=== PATIENT | female | born 1995 | race Caucasian/White ===

== ENCOUNTER → 2022-01-12 13:49 | Outpatient (CLI) | payer OTHER, SELFPAY ==
--- NOTE | ~2022-01-12 | US_ITS ---
EXAMINATION: US OB follow up EXAM DATE: 01/12/2022 14:17 INDICATION: Z34.90 - Encounter for supervision of normal . 3rd trimester. TECHNIQUE: Pelvic obstetrical transabdominal sonogram was performed by a technologist. There are mu ltiple grayscale and Doppler images available for interpretation. There are no earlier studies of is gestation for comparison. FINDINGS: There is a single fetus identified in vertex presentation with a heart rate of 144 beats pe r minute. The placenta is located in the posterior fundal position. There is no sonographic evidence of retroplacental hemorrhage identified. The amniotic fluid index is 11.5 centimeters, which is norm al. BIOMETRIC DATA: Biparietal diameter (BPD): 9.1 cm ----------------> 37 weeks 0 days. Head circumference (HC): 33.0 cm ----------------> 37 weeks 3 days. Abdominal circumference (AC): 35.3 cm ----------> 39 weeks 1 day. Femur length (FL): 7.2 cm --------------------------> 36 weeks 6 days. These measurements are concordant. HC/AC ratio is 0.93 (The 5th -- 95th percentile range is 0.91-1.05. Estimated weight is 3429 g +/- 514 g. This is the 45th percentile when the currently reported clinical gestation age 39 weeks 2 days, clinical estimated date of delivery (BEN-OPE) 01/17 is used. Fe gretchen estimated gestational age based on measurements from this exam is 37 weeks 4 days, with an estima jose date of delivery (BEN-AUA) 01/29. IMPRESSION: 1. Single fetus in vertex presentation with heart rate 144 beats per minute. 2. Estimated weight of 3429 grams, 45th percentile using the currently reported clinical gesta tion age of 39 weeks 2 days, BEN(OPE) 01/17/2022. Reviewed, dictated and finalized at location B. RACY TUTOR IMPRESSION: 1. Single fetus in vertex presentation with heart rate 144 beats per minute. 2. Estimated weight of 3429 grams, 45th percentile using the currently r eported clinical gestation age of 39 weeks 2 days, BEN(OPE) 01/17/2022.
== END ==
PROVIDERS: Visit Provider Obstetrics & Gynecology
DX: Z34.93 Encounter for supervision of normal pregnancy, unspecified, third trimester (principal); Z3A.39 39 weeks gestation of pregnancy
CPT/HCPCS: 76816

== ENCOUNTER 2022-01-25 06:18 | Outpatient (RCR) | payer OTHER, SELFPAY ==
--- NOTE | ~2022-01-25 | US_ITS ---
US OB BPP wo non-stress DATE: 01/25/2022 15:59 INDICATION: Post dates TECHNIQUE: Real-time imaging and Doppler analysis COMPARISON: 01/12/2022 obstetrical ultrasound follow-up examination FINDINGS: Live philip intrauterine gestation, fetus in vertex presentation. heart rate of 13 9 bpm. The placenta is fundal. Amniotic fluid index measures 5.7 cm, which is below the 5th percentile is 7.0 cm. 95th percentile AF I is 19.4 cm. BIOPHYSICAL PROFILE reported by surface lay out technician: breathin out of 2 movement: 2 out of 2 tone: 2 out of 2 Amniotic fluid pocket: 2 out of 2 Total score: 8 out of 8 IMPRESSION: Normal biophysical profile score of 8 out of 8 Low KELL of 5.7 cm Reviewed, dictated and finalized at Location A. Reviewed, dictated and finalized at location A.
[2022-01-25 15:42] VITALS: BP 118/59; PULSE 72
--- NOTE | 2022-01-25 16:08 | PC.NURSE ---
1536- Spoke with Dr. Martines, tadeo reviewed. Patient had 3 lates at beginning of strip. Will send patient to [facility], if 06/21 patient may be discharged to home.
== END 2022-01-25 16:08 | disposition home or self-care (01) ==
LOC: ANHOBOP 06:18
PROVIDERS: Visit Provider Obstetrics & Gynecology
DX: O48.0 Post-term pregnancy (principal); Z3A.41 41 weeks gestation of pregnancy
CPT/HCPCS: 59025; 76819

== ENCOUNTER 2022-01-27 09:00 | Observation (INO) | payer OTHER, SELFPAY ==
--- NOTE | ~2022-01-27 | US_ITS ---
EXAMINATION: US OB limited w BPP DATE: 01/27/2022 10:53 CDT INDICATION: Check amniotic fluid index TECHNIQUE: Real-time transabdominal obstetric ultrasound. FINDINGS: Comparison to 01/25/2022 There is a single living fetus in vertex presentation. The placenta is fundal without placenta previ a. KELL is low measuring 6.3 cm (normal range 7.0-19.4) cardiac activity and movement is noted with a heart rate of 157 beats per minute. Biophysical profile: breathin of 2 movement: 2 of 2 tone: 2 of 2 Amniotic flud pocket: 2 of 2 Total score: 8 of 8 IMPRESSION: 1. Single living intrauterine in vertex presentation. 2: Total biophysical profile score of 8/8. 3: Oligohydramnios Reviewed, dictated and finalized at location B.
[2022-01-27 09:51] VITALS: BP 128/78; PULSE 83
[2022-01-27 10:46] VITALS: BP 125/84; PULSE 86
--- NOTE | 2022-01-27 12:33 | PM.OBTRLD ---
OB - Triage/Final Diagnosis Visit Information Comments/Additional reasons for admission: I have assessed the risk for this patient, Juliet Sauer, and determined that she would benefit from observation care. Evaluation Vital signs: Vital Signs - 24 hr 01/27/22 09:51 01/27/22 10:46 Pulse Rate 83 86 Blood Pressure 128/78 125/84 Final Diagnosis (1) Oligohydramnios: Qualifiers: Fetus number: single or unspecified fetus Trimester: third trimester Qualified Code(s): O41.03X0 - Oligohydramnios, third trimester, not applicable or unspecified Code(s): O41.00X0 - Oligohydramnios, unspecified trimester, not applicable or unspecified Status: Acute (2) : Qualifiers: Weeks of gestation: 41 weeks Qualified Code(s): Z3A.41 - 41 weeks gestation of Code(s): Z34.90 - Encounter for supervision of normal , unspecified, unspecified trimester Status: Acute Plan: Images reviewed; KELL actually 3.3cm as you cannot include fluid with cord in it. BPP + NST otherwise 08/23. Patient continues to refuse medical induction of labor (not elective as she is oligohydramnios at late term). Patient once again informed of the risks of going home, IUFD being our biggest concern. ROM+ was negative. She was re-examined and cervix is 4/80/-2; FHT's: 130's/mod kurt/ + accels/ no decels, shefali q3min. No bleeding or leakage of fluid. Baby is moving great. She has agreed to move induction to 01/29/22 AM; plan for membrane sweep + ROM in the morning; pitocin to be started after 6 hours if no cervical change and to start at 1mU and increase slowly. Strict L&D precautions. Pt signed AMA form.
[2022-01-27 12:52] VITALS: BP 116/82; PULSE 88
--- NOTE | 2022-01-27 13:02 | PC.NURSE ---
1220--Dr. Do reviewed US at bedside with patient and FOB. Fluid levels reviewed. Risks and benefits of IOL discussed with pt and FOB. Discussed risks and benefits of pt signing out AMA with fluid levels as reported.
--- NOTE | 2022-01-27 13:10 | PC.NURSE ---
1225--Pt and FOB decided to sigh AMA paper. Risks again discussed with verbal understanding per pt and FOB.
--- NOTE | 2022-01-27 13:13 | PC.NURSE ---
1310--All charting under Ariane Ruff RN is actually per Esequiel Boles RN
== END 2022-01-27 12:45 | disposition home or self-care (01) ==
PROVIDERS: Admitting Provider Obstetrics & Gynecology; Visit Provider Obstetrics & Gynecology
DX: O41.03X0 Oligohydramnios, third trimester, not applicable or unspecified (principal); Z3A.41 41 weeks gestation of pregnancy
CPT/HCPCS: 59025; 76815; 76819; G0378; G0379

== ENCOUNTER 2022-01-28 01:41 | Inpatient (IN) | payer OTHER, SELFPAY ==
[2022-01-28] VITALS (9 sets, daily range): BP systolic 121–163; BP diastolic 74–85; PULSE 55–105; RESP 16–18; TEMP 36.6–36.7; O2SAT 100; BMI 25.7
[2022-01-28 04:50] LABS: Basophils Percent Auto 0.1 % (0.2-1.2); Hematocrit 41.3 % (37.0-47.0); Hemoglobin 14.4 g/dL (12.0-15.0); Immature Granulocyte Absolute 0.12 K/mm3 (0.00-0.031); Immature Granulocyte Percent A 0.8 % (0-0.5); Immature Platelet Fraction Pct 21.5 % (0.9-11.2); Lymphocytes Absolute Auto 1.09 K/mm3 (0.9-3.2); Lymphocytes Percent Auto 7.7 % (18.3-44.2); Mean Corpuscular HGB Conc 34.9 g/dl (32-36); Mean Corpuscular Hemoglobin 32.9 pg (26-34); Mean Corpuscular Volume 94.3 fl (80-100); Mean Platelet Volume 13.9 fl (7.4-10.4); Monocytes Absolute Auto 0.3 K/mm3 (0.1-0.6); Monocytes Percent Auto 2.4 % (2.6-8.5); Neutrophils Absolute Auto 12.7 K/mm3 (1.3-6.7); Platelet Count Result 115 k/mm3 (150-375); Red Blood Count 4.38 M/mm3 (4.2-5.4); Red Cell Distribution Width 12.4 % (11.5-14.5); White Blood Count 14.2 K/mm3 (4.5-10.0)
--- NOTE | 2022-01-28 04:56 | LDADM ---
This patient, Juliet Sauer, was admitted to Labor/Delivery/Recovery 104 on 01/28/22 at 01:41. Plans for labor, pain management and were discussed with patient. Patient/family oriented to hospital policies and general routines including ID bracelet, bed and alarms, visiting hours, pain management, procedures, bathroom and other care routines, personal items, smoking policy, room service/diet and guest tray routines, security routines, and visiting hours. Patient/Family are encouraged to report perceived risks to care and to ask questions if they do not understand what they are told or what they should do. See OBIX for further documentation.
--- NOTE | 2022-01-28 05:10 | WPDANESEPP ---
Anes - Eval Pre Procedure Procedure: labor epidural Date/Time: 01/28/22 05:10 Surgeon: gal Preop Diagnosis: pain during labor Pre Op Diagnosis: Contractions Patient Data Age: 26 Gender: F Height: 1.65 m Weight: 70 kg Last Vital Signs Pulse 84 01/28/22 02:00 BP 134/80 01/28/22 02:00 Allergies Allergy/AdvReac Type Severity Reaction Status Date / Time No Known Allergies Allergy Verified 01/13/22 16:14 Home Medications Medication Instructions Recorded Confirmed Type ferrous sulfate 325 mg (65 mg 325 mg PO DAILY 11/30/21 01/28/22 History iron) tablet prenat.vits,hollie,xbp-pnto-uyvdw 1 tablet PO DAILY 11/30/21 01/28/22 History Laboratory Tests 01/28/22 01/28/22 04:13 04:13 WBC 14.2 K/mm3 H K/mm3 (4.5-10.0) RBC 4.38 M/mm3 M/mm3 (4.2-5.4) Hgb 14.4 g/dL g/dL (12.0-15.0) Hct 41.3 % % (37.0-47.0) MCV 94.3 fl fl (80-100) MCH 32.9 pg pg (26-34) MCHC 34.9 g/dl g/dl (32-36) RDW 12.4 % % (11.5-14.5) Plt Count 115 k/mm3 L k/mm3 (150-375) MPV 13.9 fl H fl (7.4-10.4) Immature Gran % (Auto) 0.8 % H % (0-0.5) Neut % (Auto) 89.0 % H % (45.5-73.1) Lymph % (Auto) 7.7 % L % (18.3-44.2) [place] % (Auto) 2.4 % L % (2.6-8.5) Eos % (Auto) 0.0 % % (0-4.4) Baso % (Auto) 0.1 % L % (0.2-1.2) Lymph # (Auto) 1.09 K/mm3 K/mm3 (0.9-3.2) [place] # (Auto) 0.3 K/mm3 K/mm3 (0.1-0.6) Eos # (Auto) 0.0 K/mm3 K/mm3 (0-0.3) Baso # (Auto) 0.0 K/mm3 K/mm3 (0.0-0.1) Abs Immat Gran (auto) 0.12 K/mm3 H K/mm3 (0.00-0.031) Absolute Neuts (auto) 12.7 K/mm3 H K/mm3 (1.3-6.7) Absolute Nucleated RBC 0.0 K/mm3 K/mm3 (0.0-0.012) Nucleated RBC % 0.0 % % (0.0-0.2) % Immature Plt Fraction 21.5 % H % (0.9-11.2) RPR Pending Patient hx anesthesia problems: none Family hx anesthesia problems: none Results Review: All pre-operative results and documents have been reviewed as part of the pre-operative evaluation. [facility] Past Medical History Medical History (Updated 01/28/22 @ 05:10 by Kadi Santos CRNA) IUP (intrauterine ), incidental Surgical History Surgical History History of lumpectomy (~2011) left breast Family History Family History Father Cerebrovascular accident Hypertension Grandparent Heart disease Social History Social History Smoking status: Never smoker Second hand tobacco smoke exposure: No Alcohol intake: never Substance use: never Gender identity (if verbalized by the patient): Female Sexual Orientation (if Verbalized by the Patient): Straight or Heterosexual Spiritual care concerns: No Exam Day of Procedure 01/28/22 05:10
[2022-01-28 06:08] LABS: Rapid Plasma Reagin Non-Reactive (NonReactive)
--- NOTE | 2022-01-28 06:50 | PM.IMHP ---
H&P: HPI History of Present Illness Date/Time: 01/28/22 06:30 Juliet is a 26yo @ 41.4wks (BEN 01/17/22) who presented to L&D with concerns for ROM but was found to be shefali and made change to 6cm. She denies any VB. She feels good movement. She desires as natural of a labor as possible. Her is complicated by: - Late term - Oligohydramnios (has been refusing induction since 01/25/22) - H/o complex migraines - Gestational thrombocytopenia; stable at 115k Chief Complaint: leakage of fluid/contractions Review of Systems Review of Systems: All systems reviewed & are unremarkable except as noted in HPI and below (HPI) PMFSH Past Medical History Medical History IUP (intrauterine ), incidental Surgical History Surgical History History of lumpectomy (~2011) left breast Family History Family History Father Cerebrovascular accident Hypertension Grandparent Heart disease Social History Social History Smoking status: Never smoker Second hand tobacco smoke exposure: No Alcohol intake: never Substance use: never Gender identity (if verbalized by the patient): Female Sexual Orientation (if Verbalized by the Patient): Straight or Heterosexual Spiritual care concerns: No Meds Home Medications and Allergies Home Medications Medication Instructions Recorded Confirmed Type ferrous sulfate 325 mg (65 mg 325 mg PO DAILY 11/30/21 01/28/22 History iron) tablet prenat.vits,hollie,iiz-rxic-emaou 1 tablet PO DAILY 11/30/21 01/28/22 History Allergies Allergy/AdvReac Type Severity Reaction Status Date / Time No Known Allergies Allergy Verified 01/13/22 16:14 Vital Signs Vital Signs - 24 hr 01/28/22 02:00 01/28/22 05:53 Pulse Rate 84 99 Blood Pressure 134/80 163/82 H Exam Const: General: cooperative, healthy appearing, no acute distress and in distress (with contractions) Resp: Effort & Inspection: normal respiratory effort Cardio: Rate: regular rate GI: Inspection: normal to inspection GI Palp: No abdominal tenderness : Other: FHT's: 130's/ mod kurt/ + accels/ occasional mild variables - cat 2, reassuring TOCO: ctx's q3-5min Cervix: 6/100/0 Membranes: SROM, clear 0640 Presentation: cephalic Skin: General skin exam: normal color Neuro: General: patient oriented x3 Extrem: General: normal to inspection Psych: Appearance: grossly normal Affect: normal affect Attitude: cooperative H&P: Results Labs Labs: Short CBC 01/28/22 Range/Units 04:13 WBC 14.2 H (4.5-10.0) K/mm3 Hgb 14.4 (12.0-15.0) g/dL Hct 41.3 (37.0-47.0) % Plt Count 115 L (150-375) k/mm3 Assessment and Plan Assessment and plan (1) : Qualifiers: Weeks of gestation: 41 weeks Qualified Code(s): Z3A.41 - 41 weeks gestation of Code(s): Z34.90 - Encounter for supervision of normal , unspecified, unspecified trimester Status: Acute (2) Oligohydramnios: Qualifiers: Fetus number: single or unspecified fetus Trimester: third trimester Qualified Code(s): O41.03X0 - Oligohydramnios, third trimester, not applicable or unspecified Code(s): O41.00X0 - Oligohydramnios, unspecified trimester, not applicable or unspecified Status: Acute (3) Gestational thrombocytopenia: Qualifiers: Trimester: third trimester Qualified Code(s): O99.113 - Other diseases of the blood and blood-forming organs and certain disorders involving the immune mechanism complicating , third trimester; D69.6 - Thrombocytopenia, unspecified Code(s): O99.119 - Other diseases of the blood and blood-forming organs and certain disorders involving the immune mechanism
--- NOTE | 2022-01-28 06:50 | WPDHPUPDATE1 ---
History and Physical Update Update Date/Time: 01/28/22 06:50 History and Physical has been reviewed, including an updated exam of the patient. There are NO changes in the patient's condition. Risks, benefits, and alternatives have been discussed and questions answered. Patient agrees to proceed with procedure.
[2022-01-28] MEDS: OXYTOCIN 30 UNITS/NS 500 ML 30 UNITS/500 ML BAG 999 UNITS IV CONT ×2 (08:55→09:26)
[2022-01-28] MEDS: LACTATED RINGERS 1,000 ML 125 ML IV CONT (08:55)
[2022-01-28] MEDS: miSOPROStol 200 MCG TABLET ×2 (08:57)
[2022-01-28] MEDS: miSOPROStol 200 MCG TABLET 400 MCG (08:57)
[2022-01-28] MEDS: LIDOCAINE HCL 1% LOCAL INJ 10 ML VIAL (09:05)
[2022-01-28] MEDS: METHYLERGONOVINE MALEATE 0.2 MG/ML VIAL IM (09:07)
[2022-01-28 11:22] LABS: Hematocrit 38.6 % (37.0-47.0); Hemoglobin 13.3 g/dL (12.0-15.0); Mean Corpuscular HGB Conc 34.5 g/dl (32-36); Mean Corpuscular Hemoglobin 33.6 pg (26-34); Mean Corpuscular Volume 97.5 fl (80-100); Platelet Count Result 99 k/mm3 (150-375); Red Blood Count 3.96 M/mm3 (4.2-5.4); Red Cell Distribution Width 12.4 % (11.5-14.5); White Blood Count 21.5 K/mm3 (4.5-10.0)
--- NOTE | 2022-01-28 11:58 | PM.OBPRVD ---
OB - Delivery Note Procedure Delivery date: 01/28/22 Events: Oligohydramnios and Other (late term) Delivery monitor: External FHT and External Uterine Route of delivery: Laceration Description: Perineal - 2nd Degree Delivery repair: vicryl Specimen: Yes (placenta) Quantitative Blood Loss (ml): 1,400 Anesthesia type: None Disposition: Floor Complications: hemorrhage Baby Date of : 01/28/22 Time of : 08:46 Weeks of gestation at delivery: 41 (.4) Infant gender: Female Weight (pounds): 7 Weight (ounces): 13 presentation: vertex position: Right Occiput Anterior Placenta delivery description: Expressed Cord Vessel Description: 3 Vessels, Nuchal Cord, Loose and Delayed Cord Clamping score one minute: 9 score five minutes: 9 Narrative: Juliet progressed to complete dilation without any interventions or pain medications. She pushed for approximately 45 minutes. She delivered the head over intact perineum. The 's shoulders and body were easily delivered without complication. Nuchal cord was noted but delivered through. The was immediately placed skin to skin and has spontaneous cry. Meconium was noted. Delayed cord clamping was performed. The umbilical cord was then clamped and cut. A segment of the cord was collected for cord gases. The remaining cord blood was collected for typing. With Pitocin running, and gentle downward traction on the cord, the placenta delivered without complications. Brisk bleeding was then noted and bimanual massage revealed atony. Misoprostol 800 mcg was placed rectally and good tone was noted. She was then examined and a second-degree perineal laceration was noted. She was anesthetized using lidocaine. Brisk bleeding was once again noted and bimanual massage revealed at knee again. Uterine sweep was performed multiple times and no membranes or placental fragments were palpated. She was then given Methergine IM and good tone was noted. The second-degree perineal laceration was repaired in the normal fashion using 2-0 Vicryl. Good hemostasis was noted. Fundal massage revealed a firm uterus with no bleeding. All laps, sponges, and OR towels were weighed and revealed an estimated blood loss of 1400 cc. She denied any symptoms of anemia, vitals were stable, and CBC was sent approximately 2 hours after delivery. Sponge, lap, instrument, and needle counts were correct at the end the procedure. Mom and baby left bonding in the birthing suite in stable condition. [facility] Delivery Billing Delivery Delivery: Delivery Charge
--- NOTE | 2022-01-28 12:40 | PC.NURSE ---
Patient transferred to post room #283 ambulatory from labor and delivery. Support person present. Oriented to unit, room, information board, rooming in, admission packet and security measures. Patient verbalizes understanding.
--- NOTE | 2022-01-28 15:50 | PC.NURSE ---
Educated regarding positioning in football and cross cradle. showing no feeding cues at this time however practiced with holds. Mother shown hand expression and states she has a hakka and electric pump for home use. Educated regarding risks of lower milk supply with early introduction of artificial nipple; Recommendation 3-4 weeks. Discussed feeding cues and feeding on demand; 8-12 times per day. Parents verbalized understanding and no questions at this time.
[2022-01-28] MEDS: IBUPROFEN 600 MG TABLET PO (17:42)
[2022-01-29 04:20] VITALS: BP 119/75; PULSE 87; RESP 16; TEMP 36.6
[2022-01-29] MEDS: IBUPROFEN 600 MG TABLET PO ×2 (04:40→12:31)
[2022-01-29 05:54] LABS: Hematocrit 34.9 % (37.0-47.0); Hemoglobin 11.5 g/dL (12.0-15.0)
[2022-01-29 07:50] VITALS: BP 119/73; PULSE 54; RESP 16; TEMP 36.4; O2SAT 98
--- NOTE | 2022-01-29 11:09 | PC.NURSE ---
Introductions were made and mother led the conversation with regards to her experience feeding her baby. Reminded parents to use good handwashing to prevent infection. has had 10 feedings in the past 24 hours and meets the outcomes for weight, output and jaundice. Mother states she feels confident to continue effectively her infant at home. Reviewed production of human milk, transition of milk, signs of adequate intake and engorgement prevention/relief and when to call the infant care provider using the elimination sheet & mom and baby guide. Reviewed community resources and outpatient services as listed in the mom and baby guide/[facility] website. Reinforced watching for feeding cues with responsive feeding and how to stimulate to initiate feeding three hours from the start of the last feeding. Mother voiced understanding of information shared. Encouraged patient to call out to have next feeding assessed. Reported to primary RN.
[2022-01-29] MEDS: DOCUSATE SODIUM 100 MG CAPSULE PO (12:31)
--- NOTE | 2022-01-29 12:55 | PM.OBPNVD ---
OB - PN: Subj Subjective Date/time seen: 01/29/22 10:06 Narrative: PPD#1 Dena reports doing well today. 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 Has some pain at the laceration site, but controlled with PO meds. She is tolerating regular diet, voiding, passing gas, and ambulating without issues. She is breast feeding. She would like to go home today. OB - PN: Obj Data Labs CBC & Chem 7: 01/29/22 04:44 Labs: Laboratory Results - last 24 hr 01/28/22 01/29/22 11:12 04:44 WBC 21.5 H RBC 3.96 L Hgb 13.3 11.5 L Hct 38.6 34.9 L MCV 97.5 MCH 33.6 MCHC 34.5 RDW 12.4 Plt Count 99 L MPV 13.0 H OB - PN A/P Assessment and Plan (1) Normal vaginal delivery of first : Code(s): O80 - Encounter for full-term uncomplicated delivery Status: Acute (2) hemorrhage: Qualifiers: hemorrhage type: other immediate Qualified Code(s): O72.1 - Other immediate hemorrhage Code(s): O72.1 - Other immediate hemorrhage Status: Acute Plan day: 1 Plan: routine care and discharge home Comments: - Pelvic rest; take meds as prescribed - ER return precautions: fever, n/v/abd pain, bleeding, HTN Time Spent With Patient Time: Total time spent is greater than 50% in coordination of care (as documented) at patient's floor/unit and/or counseling patient: Review of Systems Constitutional: Constitutional: Denies chills, Denies fever(s) and Denies headache(s) Eyes: Eyes: Denies change in vision ENT: Denies dizziness and Denies headache(s) Cardiovascular: Cardiovascular: Denies chest pain, Denies palpitations and Denies dyspnea Respiratory: Respiratory: Denies cough and Denies dyspnea Gastrointestinal: Gastrointestinal: Denies nausea and Denies vomiting Neurologic: Denies dizziness and Denies headache(s) Endocrine: Endocrine: Denies palpitations Exam Const: General: cooperative, comfortable and no acute distress Orientation/consciousness: patient oriented x3 Resp: Effort & Inspection: normal respiratory effort Auscultation: clear to auscultation bilaterally Cardio: Rate: regular rate GI: Inspection: non-distended GI Palp: No abdominal tenderness and Yes Soft to palpation Auscultation: normal bowel sounds : Other: fundus firm Skin: General skin exam: normal color Neuro: General: patient oriented x3 Extrem: General: normal to inspection Psych: Appearance: grossly normal Affect: normal affect Attitude: cooperative
--- NOTE | 2022-01-29 13:10 | PC.NURSE ---
Patient instructed to view the discharge video Mother & Baby Care, The First Two Weeks . Patient was given the opportunity and encouraged to ask questions. Patient verbalized understanding of information shared and has been given the mother/baby guide for home reference.
[2022-01-30 09:26] VITALS: BP 118/75; PULSE 71; RESP 20; TEMP 36.7; O2SAT 100
--- NOTE | 2022-02-02 07:36 | PM.OBDSVD ---
DS: Admitting Diagnosis Discharge Date 01/29/22 Admitting Diagnosis contractions DS: Discharge Diagnosis Discharge Diagnosis (1) Normal vaginal delivery of first : Code(s): O80 - Encounter for full-term uncomplicated delivery Status: Acute (2) hemorrhage: Qualifiers: hemorrhage type: other immediate Qualified Code(s): O72.1 - Other immediate hemorrhage Code(s): O72.1 - Other immediate hemorrhage Status: Acute OB - DS: Summary OB Procedures : NST and Ultrasound OB Procedures Intrapartum: Spontaneous Vag Delivery OB Procedures: : None Peripartum Data Infant Delivery Method: Natural Vaginal Laceration Description: Perineal - 2nd Degree complications: uterine atony [place] 1: Gender: Female Disposition of : home Status at Discharge Functional status at discharge: independent ambulation Overall status at discharge: patient is back to baseline Time Spent with Patient Time attestation: Total time spent providing and/or coordinating discharge services: Time spent: Less than 30 minutes Exam Const: General: cooperative, comfortable and no acute distress Orientation/consciousness: patient oriented x3 Resp: Effort & Inspection: normal respiratory effort Auscultation: clear to auscultation bilaterally Cardio: Rate: regular rate GI: Inspection: non-distended GI Palp: No abdominal tenderness and Yes Soft to palpation Auscultation: normal bowel sounds : Other: fundus firm Skin: General skin exam: normal color Neuro: General: patient oriented x3 Extrem: General: normal to inspection Psych: Appearance: grossly normal Affect: normal affect Attitude: cooperative DS: Data Data Completed and Pending Pending studies at discharge: Pending at discharge 01/28/22 08:53 Surgical [PTH] Routine Discharge Plan Discharge Attending physician on discharge: María Do Discharging Clinician: María Do Anticipated Discharge Date/Time: 01/29/22 14:00 Patient Disposition: Home, Self-Care Activity: may shower, may drive after 2 weeks and pelvic rest Diet: as tolerated and regular Discharge Instructions: Education: Mom and Baby Guide and Preeclampsia Handout Given to: Mother Follow-Up: Call your delivering provider's office for an appointment to be seen in: 4 Weeks Mom and baby should come to the [facility] for the follow-up appointment. Appointment Date/Time: January 30, 2022 at 9:00 am What to expect at your follow-up visit: Physical Assessment Call [phone] if you are unable to keep your appointment time. BREAST CARE: * Wear a snug supportive bra. * For engorgement discomfort: Breast Feeding: * Apply warm moist washcloths * Express milk as needed to relieve engorgement * Wear loose clothing * For sore nipples: * Identify correct latch-on * Apply warm moist washcloths before and after nursing * Air dry nipples after nursing * May apply Lansinoh cream to nipples EPISIOTOMY/PERINEAL CARE: * Until bleeding stops, use your abdi bottle after urinating * Change your pad frequently throughout the day * You may take sitz baths several times a day (fill your bathtub with warm water and soak for 20 minutes.) Do NOT bathe in the water * No tub baths until seen by your physician - You may shower ACTIVITY: * Rest as much as possible. * Do not exercise or lift anything heavier than your baby (such as laundry or other children.) * Avoid stairs or driving as much as possible. * Do not put anything into the vagina. No douching, tampons, or sexual activity until seen by physician. NOTIFY PHYSICIAN IF YOU HAVE ANY QUESTIONS OR IF ANY OF THE FOLLOWING SYMPTOMS OCCUR: * If your episiotomy becomes red, swollen, or more painful than what you have experienced in
== END 2022-01-29 14:55 | disposition home or self-care (01) | DRG 806 ==
LOC: ANHLDR 04:14 → ANHOB2 12:51
PROVIDERS: Admitting Provider Obstetrics & Gynecology; Visit Provider Obstetrics & Gynecology
DX: O41.03X0 Oligohydramnios, third trimester, not applicable or unspecified (principal); O99.12 Other diseases of the blood and blood-forming organs and certain disorders involving the immune mechanism complicating childbirth; Z37.0 Single live birth; O72.1 Other immediate postpartum hemorrhage; Z3A.41 41 weeks gestation of pregnancy; D69.6 Thrombocytopenia, unspecified; O70.1 Second degree perineal laceration during delivery; O69.81X0 Labor and delivery complicated by cord around neck, without compression, not applicable or unspecified; O48.0 Post-term pregnancy
CPT/HCPCS: 36415; 59025; 76815; 76819; 84112; 85014; 85018; 85025; 85027; 85055; 86592; 86850; 86900; 86901; 88307; A9270; G0378; G0379; J2210; J2590; J7120